=== PATIENT | female | born 1955 | race Caucasian/White ===

== ENCOUNTER 2016-05-11 20:55 | Emergency (ER) | payer OTHER ==
[~2016-05-11] VITALS: Ht 157.5 cm; Wt 40.0 kg
[~2016-05-11 20:55] MED LIST: BISACODYL SUPP10 MG PR; CALCIUM 600 +1 EAC1 GT; COLACE10 MG/ML PO; COLACE50 MG GT; CORTIZONE-10 PL57 GM TP; Caltrate 600/200 G; Colace G; DAILY VITAMIN1 EAC8 PO; DILANTIN GT; DILANTIN100 MG/4 M PO; DITROPAN5 MG PO; DOC-Q-LACE50 MG/5 ML GT; Ditropan PO; DuoNeb IH; FOLIC ACID1 MG GT; FOLIC ACID1 MG PO; FORTICAL3.7 ML ALT NARES; FOSAMAX70 MG GT; Folvite G; Fortical, Miacalcin ALT NARES; HYDROCORTISON28.4 G1 TP; Heparin Sodium SC; JEVITY 1.2 CAL237 ML G; JEVITY 1.2 CAL237 ML GT; KEPPRA G; KEPPRA1000 MG PO; Keppra PO; LAMICTAL200 MG PO; LAMICTAL25 MG PO; LAMOTRIGINE200 MG GT; LEVETIRACE100 MG/1 M GT; LEVOFLOXACIN750 MG GT; LEVOTHROID100 MCG PO; LEVOTHYROXINE100 MCG GT; LaMICtal G; LaMICtal PO; Levothroid,Synthroid GT; Lopressor G; Lopressor GT; METOPROLOL SUCC25 MG PO; METOPROLOL TART25 MG GT; MILK OF MAGNESI10 ML GT; MIRALAX17 GM PO; MIRALAX255 GM PO; MONTELUKAST SOD10 MG GT; Mysoline G; Mysoline PO; OXYBUTININ G; OXYBUTYNIN5 MG/5 ML GT; OYSTER SHELL C1 EAC7 PO; Ocean Nasal 0.65% BOTH NARES; Oscal 500 w/Vitamin PO; PHENYTOIN G; PHENYTOIN125 MG/5 M GT; POTASSIUM PO; PRIMIDONE50 MG GT; PRIMIDONE50 MG PO; PROMETRIUM200 M1 PO; PROVENTIL2.5 MG/3 M IH; Potassium Chloride 1 GT; SINGULAIR10 MG PO; Santyl TP; Singulair G; Singulair PO; THEO-24200 MG PO; THEOCHRON100 MG PO; THERAGRAN5 ML G; Theo-Dur,Theocron PO; Tirosint G; Tylenol PR; VITA50 ML GT; ZYVOX600 MG PO; ZYVOX600 MG/300 GT; Zofran PO
[2016-05-11 21:46] LABS: EOSINOPHIL (%) 7.2 % (0-5); EOSINOPHIL COUNT 0.6 K/uL (0-0.3); HEMATOCRIT 40.6 % (36.0-46.0); IMMATURE GRANULOCYTE (%) 0.1 % (0.0-0.7); IMMATURE GRANULOCYTE COUNT 0.1 K/uL; LYMPHOCYTE COUNT 2.5 K/uL (1.0-2.8); MCH 31.8 PG (29.0-34.0); MCHC 33.3 G/DL (30.0-36.0); MCV 95.8 FL (83-99); MEAN PLAT.VOLUME 9.9 uM^3 (9.5-12.4); MONOCYTE (%) 10.1 % (3-12); MONOCYTE COUNT 0.9 K/uL (0-0.8); NEUTROPHIL (%) 52.2 % (45-76); NEUTROPHIL COUNT 4.4 K/uL (1.8-6.4); PLATELET COUNT 271 K/uL (156-360); RBC DIS.WIDTH-CV 12.8 % (11.8-14.6); RBC DIS.WIDTH-SD 43.4 % (39-53); RED BLOOD COUNT 4.24 M/uL (3.80-5.20); WHITE BLOOD COUNT 8.4 K/uL (4.1-10.2)
[2016-05-11 21:56] LABS: CHLORIDE 101 mEq/L (99-109); POTASSIUM 4.3 mEq/L (3.7-5.4)
[2016-05-11 21:57] LABS: SODIUM 139 mEq/L (136-147)
[2016-05-11 21:59] LABS: GLUCOSE 86 mg/dL (70-99)
[2016-05-11 22:00] LABS: ANION GAP 10 MEQ/L (2-14)
[2016-05-11 22:01] LABS: TOTAL BILIRUBIN 0.3 mg/dL (0.0-1.0)
[2016-05-11 22:02] LABS: ALKALINE PHOSPHATASE 123 IU/L (3-129); GFR ESTIMATE (CALCULATED) > 59 mL/min/
[2016-05-11 22:04] LABS: UREA NITROGEN (BUN) 13 mg/dL (9-23)
[2016-05-11 22:06] LABS: TROP-I INTERPRETATION NEGATIVE; TROPONIN-I < 0.01 ng/mL (0.0-0.30)
[2016-05-11 23:46] LABS: ADD MIUA? YES
[2016-05-12 00:05] LABS: COLOR YELLOW ((YELLOW))
[2016-05-12 00:06] LABS: BILIRUBIN NEGATIVE; BLOOD SMALL; GLUCOSE (STRIP) NEGATIVE; KETONES NEGATIVE; LEUKOCYTES MODERATE; NITRITE NEGATIVE; PH, URINE 8.5 (5-8); PROTEIN (STRIP) TRACE; UROBILINOGEN 0.2 MG/DL (0.2-1.0)
[2016-05-12 00:07] LABS: AMORPHOUS PHOSPHATE CRYSTALS 1+; BACTERIA 2+; CASTS NONE SEEN /LPF; CRYSTALS PRESENT; EPITHELIAL CELLS RARE; MUCUS NONE SEEN; RED BLOOD CELLS 0-5 /HPF (0-5); UCUL ADDED? YES; WHITE BLOOD CELLS TNTC /HPF (0-5)
[2016-05-12] MEDS ORDERED: MIRALAX255 GM PO (00:29)
[2016-05-12] MEDS ORDERED: CIPRO500 MG PO (00:50)
[2016-05-12 02:12] VITALS: BP 118/74
== END 2016-05-12 02:45 | disposition home or self-care (01) ==
LOC: EME → EDBD 20:55 → EME 05-12 02:45
PROVIDERS: Emergency Medicine
DX: R56.9 Unspecified convulsions (principal); N30.00 Acute cystitis without hematuria; J45.909 Unspecified asthma, uncomplicated; E03.9 Hypothyroidism, unspecified; F79 Unspecified intellectual disabilities; G47.30 Sleep apnea, unspecified; G82.50 Quadriplegia, unspecified
CPT/HCPCS: 71010; 74177; 80053; 81003; 84484; 85025; 87077; 87086; 87186; 93005; 99281; 99285; J0744; J1953; J2060; J7030; J7050

== ENCOUNTER 2016-06-11 21:39 | Inpatient (IN) | payer OTHER ==
[~2016-06-11] VITALS: Ht 121.9 cm; Wt 37.9 kg
[~2016-06-11 21:39] MED LIST changes: +CIPRO500 MG PO; +MIRALAX255 GM GT
[2016-06-11 22:49] LABS: BASOPHIL COUNT 0.1 K/uL (0-0.1); EOSINOPHIL (%) 6.2 % (0-5); EOSINOPHIL COUNT 0.5 K/uL (0-0.3); HEMATOCRIT 41.6 % (36.0-46.0); IMMATURE GRANULOCYTE (%) 0.2 % (0.0-0.7); IMMATURE GRANULOCYTE COUNT 0.2 K/uL; LYMPHOCYTE COUNT 2.2 K/uL (1.0-2.8); MCH 31.6 PG (29.0-34.0); MCHC 32.9 G/DL (30.0-36.0); MCV 96.1 FL (83-99); MEAN PLAT.VOLUME 9.8 uM^3 (9.5-12.4); MONOCYTE (%) 7.4 % (3-12); MONOCYTE COUNT 0.6 K/uL (0-0.8); NEUTROPHIL (%) 59.8 % (45-76); NEUTROPHIL COUNT 5.2 K/uL (1.8-6.4); PLATELET COUNT 273 K/uL (156-360); RBC DIS.WIDTH-CV 12.9 % (11.8-14.6); RBC DIS.WIDTH-SD 43.4 % (39-53); RED BLOOD COUNT 4.33 M/uL (3.80-5.20); WHITE BLOOD COUNT 8.7 K/uL (4.1-10.2)
[2016-06-11 22:57] LABS: CHLORIDE 103 mEq/L (99-109); POTASSIUM 4.2 mEq/L (3.7-5.4); SODIUM 140 mEq/L (136-147)
[2016-06-11 22:59] LABS: GLUCOSE 90 mg/dL (70-99)
[2016-06-11 23:01] LABS: ANION GAP 8 MEQ/L (2-14); TOTAL BILIRUBIN 0.1 mg/dL (0.0-1.0)
[2016-06-11 23:03] LABS: ALKALINE PHOSPHATASE 152 IU/L (3-129); GFR ESTIMATE (CALCULATED) > 59 mL/min/
[2016-06-11 23:04] LABS: UREA NITROGEN (BUN) 11 mg/dL (9-23)
[2016-06-12 01:43] LABS: BASE EXCESS 4.9 mEq/L (-3 to +3); BICARBONATE 31.4 mEq/L (22-26); CARBOXY HGB 2.3 % (0-5); METHEMOGLOBIN 1.4 % (0-1.5); PCO2 53 mm Hg (35-45); PO2 71 mm Hg (80-100); pH 7.38 (7.35-7.45)
[2016-06-12 01:44] LABS: FI02 21 %; SITE RR
[2016-06-12] MEDS ORDERED: KEPPRA100 MG/1 M GT ×2 (03:22→12:13)
[2016-06-12 06:07] VITALS: BP 115/61
[2016-06-12 06:19] VITALS: BP 115/61
[2016-06-12 08:28] VITALS: BP 126/79
[2016-06-12 09:03] LABS: HEMATOCRIT 41.7 % (36.0-46.0); MCH 32.2 PG (29.0-34.0); MCHC 33.1 G/DL (30.0-36.0); MCV 97.2 FL (83-99); MEAN PLAT.VOLUME 10.4 uM^3 (9.5-12.4); PLATELET COUNT 251 K/uL (156-360); RBC DIS.WIDTH-CV 13.3 % (11.8-14.6); RBC DIS.WIDTH-SD 46.6 % (39-53); RED BLOOD COUNT 4.29 M/uL (3.80-5.20); WHITE BLOOD COUNT 8.1 K/uL (4.1-10.2)
[2016-06-12 09:38] LABS: ALKALINE PHOSPHATASE 139 IU/L (3-129); ANION GAP 6 MEQ/L (2-14); CHLORIDE 104 MEQ/L (99-109); GFR ESTIMATE (CALCULATED) > 59 mL/min/; GLUCOSE 77 mg/dL (70-99); POTASSIUM 4.7 MEQ/L (3.7-5.4); SAMPLE HEMOLYSIS CHECK 0; SAMPLE ICTERIC CHECK 0; SAMPLE LIPEMIA CHECK 0; SODIUM 140 MEQ/L (136-147); TOTAL BILIRUBIN 0.3 MG/DL (0.0-1.0); UREA NITROGEN (BUN) 8 mg/dL (9-23)
[2016-06-12] MEDS ORDERED: CALCIUM 600 +1 EAC1 GT (11:05)
[2016-06-12] MEDS ORDERED: MIACALCIN4 ML NS ×2 (11:09→11:13)
[2016-06-12] MEDS ORDERED: JEVITY 1.2 CAL237 ML GT (11:16)
[2016-06-12] MEDS ORDERED: MY FAVORITE MU237 ML GT (11:27)
[2016-06-12 11:58] VITALS: BP 109/60
[2016-06-12] MEDS ORDERED: DILANTIN-1125 MG/5 M GT (12:11)
[2016-06-12 23:54] VITALS: BP 84/47; BP 89/51
[2016-06-13 04:32] VITALS: BP 100/55
[2016-06-13 08:09] VITALS: BP 98/54
[2016-06-13 11:50] VITALS: BP 102/56
[2016-06-13 16:26] VITALS: BP 124/65
[2016-06-13 20:35] VITALS: BP 113/59
[2016-06-14 00:03] VITALS: BP 88/50
[2016-06-14 06:19] VITALS: BP 158/90
[2016-06-14 08:02] VITALS: BP 96/51
[2016-06-14] MEDS ORDERED: MILK OF MAGNESI10 ML GT (14:15)
[2016-06-14] MEDS ORDERED: Dilantin GT (14:15)
[2016-06-14] MEDS ORDERED: FAMOTIDINE20 MG GT (14:15)
[2016-06-14] MEDS ORDERED: BISAC-EVAC10 MG PR (14:15)
[2016-06-14 15:50] VITALS: BP 96/55
[2016-06-14 20:00] VITALS: BP 100/59
[2016-06-15 00:11] VITALS: BP 112/60
[2016-06-15 04:01] VITALS: BP 108/58
[2016-06-15 08:24] VITALS: BP 102/54
[2016-06-15 11:23] VITALS: BP 118/67
== END 2016-06-15 12:35 | disposition home or self-care (01) | DRG 100 ==
LOC: EME → EDBD 21:39 → EDOF 06-12 04:17 → 3EAST 06-12 04:17
PROVIDERS: Emergency Medicine; Internal Medicine
DX: G40.909 Epilepsy, unspecified, not intractable, without status epilepticus (principal); L89.214 Pressure ulcer of right hip, stage 4; E46 Unspecified protein-calorie malnutrition; G80.0 Spastic quadriplegic cerebral palsy; E87.1 Hypo-osmolality and hyponatremia; N39.0 Urinary tract infection, site not specified; Z93.1 Gastrostomy status; G47.30 Sleep apnea, unspecified; E03.9 Hypothyroidism, unspecified; F79 Unspecified intellectual disabilities; J45.909 Unspecified asthma, uncomplicated; Z68.25 Body mass index [BMI] 25.0-25.9, adult
CPT/HCPCS: 36600; 71010; 80053; 80164; 80185; 82803; 85025; 85027; 94799; 99281; 99285; J1644; J1953; J2060; J7030; J7050

== ENCOUNTER 2016-06-25 21:18 | Inpatient (IN) | payer OTHER ==
[~2016-06-25] VITALS: Ht 142.2 cm; Wt 40.4 kg
[~2016-06-25 21:18] MED LIST changes: +BISAC-EVAC10 MG PR; +DILANTIN-1125 MG/5 M GT; +Dilantin GT; +FAMOTIDINE20 MG GT; +KEPPRA100 MG/1 M GT; +MIACALCIN4 ML NS; +MY FAVORITE MU237 ML GT
[2016-06-25 21:24] VITALS: BP 105/68
[2016-06-25 22:00] VITALS: BP 104/59
[2016-06-25 22:32] LABS: BASOPHIL COUNT 0.1 K/uL (0-0.1); EOSINOPHIL (%) 6.4 % (0-5); EOSINOPHIL COUNT 0.7 K/uL (0-0.3); HEMATOCRIT 41.9 % (36.0-46.0); IMMATURE GRANULOCYTE (%) 0.4 % (0.0-0.7); IMMATURE GRANULOCYTE COUNT 0.1 K/uL; INSTRUMENT ABS NEUTROPHIL CT 7.2 K/uL; LYMPHOCYTE COUNT 2.5 K/uL (1.0-2.8); MCH 31.6 PG (29.0-34.0); MCHC 32.7 G/DL (30.0-36.0); MCV 96.5 FL (83-99); MEAN PLAT.VOLUME 9.8 uM^3 (9.5-12.4); MONOCYTE (%) 7.4 % (3-12); MONOCYTE COUNT 0.9 K/uL (0-0.8); NEUTROPHIL (%) 63.1 % (45-76); NEUTROPHIL COUNT 7.2 K/uL (1.8-6.4); RBC DIS.WIDTH-CV 12.7 % (11.8-14.6); RBC DIS.WIDTH-SD 45.1 % (39-53); RED BLOOD COUNT 4.34 M/uL (3.80-5.20)
[2016-06-25 22:47] LABS: CHLORIDE 100 mEq/L (99-109); SODIUM 136 mEq/L (136-147)
[2016-06-25 22:48] LABS: PLATELET COUNT 339 K/uL (156-360); WHITE BLOOD COUNT 11.5 K/uL (4.1-10.2)
[2016-06-25 22:50] LABS: GLUCOSE 87 mg/dL (70-99)
[2016-06-25 22:51] LABS: ANION GAP 8 MEQ/L (2-14); TOTAL BILIRUBIN 0.2 mg/dL (0.0-1.0)
[2016-06-25 22:53] LABS: ALKALINE PHOSPHATASE 142 IU/L (3-129); GFR ESTIMATE (CALCULATED) > 59 mL/min/
[2016-06-25 22:54] LABS: UREA NITROGEN (BUN) 11 mg/dL (9-23)
[2016-06-25 23:00] VITALS: BP 102/63
[2016-06-25 23:10] LABS: ADD MIUA? YES; BILIRUBIN NEGATIVE; BLOOD NEGATIVE; COLOR YELLOW ((YELLOW)); GLUCOSE (STRIP) NEGATIVE; KETONES NEGATIVE; LEUKOCYTES LARGE; NITRITE NEGATIVE; PROTEIN (STRIP) NEGATIVE; SPECIFIC GRAVITY 1.009 (1.000-1.030); UROBILINOGEN 0.2 MG/DL (0.2-1.0)
[2016-06-25 23:26] LABS: BACTERIA 2+ /HPF; EPITHELIAL CELLS NONE SEEN /HPF; HYALINE CASTS 0-5 /LPF; MUCUS TRACE /LPF; RED BLOOD CELLS 0-5 /HPF (0-5); UCUL ADDED? YES
[2016-06-26] VITALS (9 sets, daily range): BP systolic 88–131; BP diastolic 51–75
[2016-06-26] MEDS ORDERED: DULCOLAX10 MG PR (00:29)
[2016-06-26] MEDS ORDERED: MIACALCIN4 ML NS (00:30)
[2016-06-26] MEDS ORDERED: DILANTIN-1125 MG/5 M GT ×2 (00:32→00:46)
[2016-06-26] MEDS ORDERED: PHILLIPS'400 MG/5 M GT (00:35)
[2016-06-26] MEDS ORDERED: CALMOSEPTINE O120 GM TP (00:37)
[2016-06-26] MEDS ORDERED: FLEET ENEMA-AD118 ML PR (00:37)
[2016-06-26] MEDS ORDERED: DIASTAT ACUDIAL10 MG PR (00:38)
[2016-06-26] MEDS ORDERED: CHILDREN'S160 MG/22 GT (00:38)
[2016-06-26] MEDS ORDERED: PROVENTIL,2.5 MG/3 M IH (00:38)
[2016-06-26] MEDS ORDERED: FAMOTIDINE40 MG/5 ML GT (00:47)
[2016-06-26] MEDS ORDERED: ZONISAMIDE100 MG GT (00:47)
[2016-06-26 09:07] LABS: INTERNAL CONTROL VALID? YES
[2016-06-26 10:56] LABS: HEMATOCRIT 45.4 % (36.0-46.0); MCH 31.4 PG (29.0-34.0); MCHC 31.5 G/DL (30.0-36.0); MCV 99.6 FL (83-99); MEAN PLAT.VOLUME 9.9 uM^3 (9.5-12.4); PLATELET COUNT 303 K/uL (156-360); RBC DIS.WIDTH-SD 47.8 % (39-53); RED BLOOD COUNT 4.56 M/uL (3.80-5.20)
[2016-06-26 10:58] LABS: WHITE BLOOD COUNT 7.4 K/uL (4.1-10.2)
[2016-06-26 11:16] LABS: ALKALINE PHOSPHATASE 149 IU/L (3-129); ANION GAP 7 MEQ/L (2-14); CHLORIDE 104 MEQ/L (99-109); GFR ESTIMATE (CALCULATED) > 59 mL/min/; GLUCOSE 81 mg/dL (70-99); POTASSIUM 4.7 MEQ/L (3.7-5.4); SAMPLE HEMOLYSIS CHECK 0; SAMPLE ICTERIC CHECK 0; SAMPLE LIPEMIA CHECK 0; SODIUM 140 MEQ/L (136-147); TOTAL BILIRUBIN 0.3 MG/DL (0.0-1.0); UREA NITROGEN (BUN) 7 mg/dL (9-23)
[2016-06-27 03:22] VITALS: BP 119/58
[2016-06-27 06:19] LABS: BASOPHIL COUNT 0.1 K/uL (0-0.1); EOSINOPHIL (%) 9.6 % (0-5); EOSINOPHIL COUNT 0.7 K/uL (0-0.3); HEMATOCRIT 43.6 % (36.0-46.0); IMMATURE GRANULOCYTE (%) 0.3 % (0.0-0.7); INSTRUMENT ABS NEUTROPHIL CT 3.2 K/uL; LYMPHOCYTE COUNT 2.7 K/uL (1.0-2.8); MCH 31.7 PG (29.0-34.0); MCHC 31.9 G/DL (30.0-36.0); MCV 99.3 FL (83-99); MEAN PLAT.VOLUME 9.8 uM^3 (9.5-12.4); MONOCYTE COUNT 0.6 K/uL (0-0.8); NEUTROPHIL (%) 43.5 % (45-76); NEUTROPHIL COUNT 3.2 K/uL (1.8-6.4); PLATELET COUNT 342 K/uL (156-360); RBC DIS.WIDTH-CV 12.9 % (11.8-14.6); RED BLOOD COUNT 4.39 M/uL (3.80-5.20); WHITE BLOOD COUNT 7.3 K/uL (4.1-10.2)
[2016-06-27 06:45] LABS: ANION GAP 7 MEQ/L (2-14); CHLORIDE 103 MEQ/L (99-109); GFR ESTIMATE (CALCULATED) > 59 mL/min/; GLUCOSE 81 mg/dL (70-99); POTASSIUM 4.8 MEQ/L (3.7-5.4); SAMPLE HEMOLYSIS CHECK 0; SAMPLE ICTERIC CHECK 0; SAMPLE LIPEMIA CHECK 0; SODIUM 140 MEQ/L (136-147); UREA NITROGEN (BUN) 12 mg/dL (9-23)
[2016-06-27 07:59] VITALS: BP 131/60
[2016-06-27 08:02] LABS: POINT-OF-CARE METER ID UU13113702
[2016-06-27 17:32] VITALS: BP 134/60
[2016-06-27 19:15] VITALS: BP 128/64
[2016-06-27 23:18] VITALS: BP 112/62
[2016-06-28 03:42] VITALS: BP 125/62
[2016-06-28 07:15] VITALS: BP 119/61
[2016-06-28 07:23] LABS: HEMATOCRIT 42.3 % (36.0-46.0); MCH 31.2 PG (29.0-34.0); MCHC 31.9 G/DL (30.0-36.0); MCV 97.7 FL (83-99); PLATELET COUNT 349 K/uL (156-360); RBC DIS.WIDTH-CV 12.9 % (11.8-14.6); RBC DIS.WIDTH-SD 46.4 % (39-53); RED BLOOD COUNT 4.33 M/uL (3.80-5.20); WHITE BLOOD COUNT 7.1 K/uL (4.1-10.2)
[2016-06-28 07:42] LABS: ANION GAP 9 MEQ/L (2-14); CHLORIDE 103 MEQ/L (99-109); GFR ESTIMATE (CALCULATED) > 59 mL/min/; GLUCOSE 121 mg/dL (70-99); SAMPLE HEMOLYSIS CHECK 0; SAMPLE ICTERIC CHECK 0; SAMPLE LIPEMIA CHECK 0; SODIUM 140 MEQ/L (136-147); UREA NITROGEN (BUN) 12 mg/dL (9-23)
[2016-06-28] MEDS ORDERED: AMOX TR-K400 MG/5 M GT (09:55)
[2016-06-28] MEDS ORDERED: DILANTIN-1125 MG/5 M GT (09:55)
[2016-06-28] MEDS ORDERED: ZITHROMAX200 MG/5 M GT (09:55)
== END 2016-06-28 14:48 | disposition home or self-care (01) | DRG 100 ==
LOC: EME → EDBD 21:18 → EDOF 06-26 00:46 → 5EAST 06-26 00:46
PROVIDERS: Emergency Medicine; Family Medicine; Hospitalist; Pediatrics
DX: G40.909 Epilepsy, unspecified, not intractable, without status epilepticus (principal); J18.9 Pneumonia, unspecified organism; N39.0 Urinary tract infection, site not specified; L89.214 Pressure ulcer of right hip, stage 4; G80.0 Spastic quadriplegic cerebral palsy; F72 Severe intellectual disabilities; T42.0X1A Poisoning by hydantoin derivatives, accidental (unintentional), initial encounter; E03.9 Hypothyroidism, unspecified; G47.33 Obstructive sleep apnea (adult) (pediatric); Z66 Do not resuscitate; Z51.5 Encounter for palliative care; Z86.14 Personal history of Methicillin resistant Staphylococcus aureus infection; Z93.1 Gastrostomy status; Z88.2 Allergy status to sulfonamides
CPT/HCPCS: 71010; 80048; 80053; 80164; 80185; 81003; 82948; 85025; 85027; 87040; 87077; 87086 GA; 87186; 87449; 93005; 94799; 99202; 99281; 99285; J0456; J0696; J1644; J2060; J7030; J7050

== ENCOUNTER 2016-12-07 19:00 | Inpatient (IN) | payer OTHER ==
[~2016-12-07] VITALS: Ht 137.2 cm; Wt 48.6 kg
[~2016-12-07 19:00] MED LIST changes: +AMOX TR-K400 MG/5 M GT; +CALMOSEPTINE O120 GM TP; +CHILDREN'S160 MG/22 GT; +DIASTAT ACUDIAL10 MG PR; +DULCOLAX10 MG PR; +FAMOTIDINE40 MG/5 ML GT; +FLEET ENEMA-AD118 ML PR; +PHILLIPS'400 MG/5 M GT; +PROVENTIL,2.5 MG/3 M IH; +ZITHROMAX200 MG/5 M GT; +ZONISAMIDE100 MG GT
[2016-12-07 19:47] LABS: EOSINOPHIL (%) 1.2 % (0-5); EOSINOPHIL COUNT 0.2 K/uL (0-0.3); HEMATOCRIT 45.2 % (36.0-46.0); IMMATURE GRANULOCYTE (%) 0.4 % (0.0-0.7); IMMATURE GRANULOCYTE COUNT 0.1 K/uL; INSTRUMENT ABS NEUTROPHIL CT 10.6 K/uL; LYMPHOCYTE COUNT 1.5 K/uL (1.0-2.8); MCH 31.6 PG (29.0-34.0); MCHC 32.7 G/DL (30.0-36.0); MCV 96.6 FL (83-99); MEAN PLAT.VOLUME 9.9 uM^3 (9.5-12.4); MONOCYTE (%) 5.6 % (3-12); MONOCYTE COUNT 0.7 K/uL (0-0.8); NEUTROPHIL (%) 81.2 % (45-76); NEUTROPHIL COUNT 10.6 K/uL (1.8-6.4); PLATELET COUNT 236 K/uL (156-360); RBC DIS.WIDTH-CV 12.5 % (11.8-14.6); RBC DIS.WIDTH-SD 44.7 % (39-53); RED BLOOD COUNT 4.68 M/uL (3.80-5.20); WHITE BLOOD COUNT 13.1 K/uL (4.1-10.2)
[2016-12-07 19:57] LABS: CHLORIDE 101 mEq/L (99-109); POTASSIUM 3.9 mEq/L (3.7-5.4); SODIUM 137 mEq/L (136-147)
[2016-12-07 19:58] LABS: GLUCOSE 162 mg/dL (70-99)
[2016-12-07 20:00] LABS: ANION GAP 10 MEQ/L (2-14)
[2016-12-07 20:02] LABS: GFR ESTIMATE (CALCULATED) > 59 mL/min/
[2016-12-07 20:03] LABS: UREA NITROGEN (BUN) 14 mg/dL (9-23)
[2016-12-07 20:27] LABS: TOTAL BILIRUBIN 0.3 mg/dL (0.0-1.0)
[2016-12-07 20:28] LABS: ALKALINE PHOSPHATASE 180 IU/L (3-129)
[2016-12-07 20:30] LABS: DIRECT BILIRUBIN 0.1 mg/dL (0.0-0.3)
[2016-12-07 21:29] LABS: ADD MIUA? YES; BILIRUBIN NEGATIVE; BLOOD NEGATIVE; COLOR YELLOW ((YELLOW)); GLUCOSE (STRIP) NEGATIVE; KETONES NEGATIVE; LEUKOCYTES LARGE; NITRITE POSITIVE; PROTEIN (STRIP) NEGATIVE; SPECIFIC GRAVITY 1.013 (1.000-1.030); UROBILINOGEN 0.2 MG/DL (0.2-1.0)
[2016-12-07 21:51] LABS: BACTERIA 4+ /HPF; CASTS PRESENT /LPF; CRYSTALS PRESENT; EPITHELIAL CELLS NONE SEEN /HPF; MUCUS NONE SEEN /LPF; RED BLOOD CELLS 0-5 /HPF (0-5); UCUL ADDED? YES
[2016-12-07 21:53] LABS: AMORPHOUS PHOSPHATE CRYSTALS 1+; COARSE GRANULAR CASTS 0-5 /LPF
[2016-12-08 03:23] VITALS: BP 129/65
[2016-12-08] MEDS ORDERED: CALCIUM 600 +1 EAC1 GT (03:48)
[2016-12-08] MEDS ORDERED: PEPCID40 MG/5 ML GT (03:50)
[2016-12-08] MEDS ORDERED: FOLIC ACID1 MG GT (03:51)
[2016-12-08] MEDS ORDERED: CALCITONIN-SAL3.8 ML ALT NARES (03:53)
[2016-12-08] MEDS ORDERED: MIACALCIN200 UNIT/1 RIGHT NARE (03:54)
[2016-12-08] MEDS ORDERED: JEVITY 1.2 CAL237 ML PO (03:56)
[2016-12-08] MEDS ORDERED: LAMICTAL200 MG GT (03:57)
[2016-12-08] MEDS ORDERED: SYNTHROID100 MCG GT (03:58)
[2016-12-08] MEDS ORDERED: KEPPRA100 MG/1 M PO (03:58)
[2016-12-08] MEDS ORDERED: LOPRESSOR25 MG GT (04:02)
[2016-12-08] MEDS ORDERED: MIRALAX17 GM GT (04:04)
[2016-12-08] MEDS ORDERED: SINGULAIR10 MG GT (04:05)
[2016-12-08] MEDS ORDERED: MULTI VITAMIN1 EACH GT (04:06)
[2016-12-08] MEDS ORDERED: DITROPAN5 MG GT (04:07)
[2016-12-08] MEDS ORDERED: PHENYTOIN125 MG/5 M GT (04:08)
[2016-12-08] MEDS ORDERED: MYSOLINE50 MG GT (04:09)
[2016-12-08] MEDS ORDERED: ZONEGRAN100 MG GT (04:10)
[2016-12-08] MEDS ORDERED: ZONEGRAN100 MG PO (04:10)
[2016-12-08 04:54] LABS: METH RESISTANT S AUREUS PCR POSITIVE (NEGATIVE)
[2016-12-08 04:59] LABS: PROBE CHECK PASS
[2016-12-08] MEDS ORDERED: KEPPRA100 MG/1 M GT (05:31)
[2016-12-08 07:44] VITALS: BP 91/51
[2016-12-08 11:34] VITALS: BP 104/62
[2016-12-08 15:31] VITALS: BP 116/62
[2016-12-08 23:38] VITALS: BP 104/53
[2016-12-09 04:17] VITALS: BP 171/84
[2016-12-09 07:17] LABS: HEMATOCRIT 39.9 % (36.0-46.0); MCH 31.3 PG (29.0-34.0); MCHC 31.6 G/DL (30.0-36.0); MCV 99.3 FL (83-99); MEAN PLAT.VOLUME 10.5 uM^3 (9.5-12.4); PLATELET COUNT 211 K/uL (156-360); RBC DIS.WIDTH-CV 12.5 % (11.8-14.6); RBC DIS.WIDTH-SD 45.5 % (39-53); RED BLOOD COUNT 4.02 M/uL (3.80-5.20); WHITE BLOOD COUNT 12.8 K/uL (4.1-10.2)
[2016-12-09 07:29] LABS: ANION GAP 9 MEQ/L (2-14); CHLORIDE 101 MEQ/L (99-109); GFR ESTIMATE (CALCULATED) > 59 mL/min/; POTASSIUM 4.2 MEQ/L (3.7-5.4); SAMPLE HEMOLYSIS CHECK 0; SAMPLE ICTERIC CHECK 0; SAMPLE LIPEMIA CHECK 0; SODIUM 135 MEQ/L (136-147); UREA NITROGEN (BUN) 7 mg/dL (9-23)
[2016-12-09 07:30] LABS: GLUCOSE 103 mg/dL (70-99)
[2016-12-09 08:09] VITALS: BP 110/63
[2016-12-09 16:33] VITALS: BP 118/62
[2016-12-09 23:11] VITALS: BP 113/66
[2016-12-10 07:19] LABS: BASOPHIL COUNT 0.1 K/uL (0-0.1); EOSINOPHIL (%) 2.1 % (0-5); EOSINOPHIL COUNT 0.3 K/uL (0-0.3); HEMATOCRIT 39.2 % (36.0-46.0); IMMATURE GRANULOCYTE (%) 0.5 % (0.0-0.7); IMMATURE GRANULOCYTE COUNT 0.1 K/uL; INSTRUMENT ABS NEUTROPHIL CT 10.9 K/uL; LYMPHOCYTE COUNT 1.7 K/uL (1.0-2.8); MCH 32.3 PG (29.0-34.0); MCHC 32.9 G/DL (30.0-36.0); MCV 98.2 FL (83-99); MONOCYTE (%) 9.3 % (3-12); MONOCYTE COUNT 1.3 K/uL (0-0.8); NEUTROPHIL (%) 76.2 % (45-76); NEUTROPHIL COUNT 10.9 K/uL (1.8-6.4); RBC DIS.WIDTH-CV 12.5 % (11.8-14.6); RBC DIS.WIDTH-SD 45.6 % (39-53); RED BLOOD COUNT 3.99 M/uL (3.80-5.20); WHITE BLOOD COUNT 14.3 K/uL (4.1-10.2)
[2016-12-10 07:45] LABS: MEAN PLAT.VOLUME 11.2 uM^3 (9.5-12.4); PLAT.SUFFICIENCY ADEQUATE; PLATELET COUNT 199 K/uL (156-360)
[2016-12-10 07:53] LABS: ANION GAP 10 MEQ/L (2-14); CHLORIDE 103 MEQ/L (99-109); GFR ESTIMATE (CALCULATED) > 59 mL/min/; GLUCOSE 98 mg/dL (70-99); POTASSIUM 4.2 MEQ/L (3.7-5.4); SAMPLE HEMOLYSIS CHECK 0; SAMPLE ICTERIC CHECK 0; SAMPLE LIPEMIA CHECK 0; SODIUM 139 MEQ/L (136-147); UREA NITROGEN (BUN) 8 mg/dL (9-23)
[2016-12-10 08:05] VITALS: BP 132/76
[2016-12-10 15:31] VITALS: BP 107/58
[2016-12-11 00:06] VITALS: BP 112/55
[2016-12-11 06:48] LABS: BASOPHIL COUNT 0.1 K/uL (0-0.1); EOSINOPHIL (%) 2.1 % (0-5); EOSINOPHIL COUNT 0.2 K/uL (0-0.3); HEMATOCRIT 38.3 % (36.0-46.0); IMMATURE GRANULOCYTE (%) 0.5 % (0.0-0.7); IMMATURE GRANULOCYTE COUNT 0.1 K/uL; INSTRUMENT ABS NEUTROPHIL CT 7.6 K/uL; MCH 31.5 PG (29.0-34.0); MCHC 32.6 G/DL (30.0-36.0); MCV 96.5 FL (83-99); MEAN PLAT.VOLUME 10.5 uM^3 (9.5-12.4); MONOCYTE (%) 10.9 % (3-12); MONOCYTE COUNT 1.2 K/uL (0-0.8); NEUTROPHIL (%) 68.2 % (45-76); NEUTROPHIL COUNT 7.6 K/uL (1.8-6.4); PLATELET COUNT 208 K/uL (156-360); RBC DIS.WIDTH-CV 12.2 % (11.8-14.6); RBC DIS.WIDTH-SD 43.6 % (39-53); RED BLOOD COUNT 3.97 M/uL (3.80-5.20); WHITE BLOOD COUNT 11.1 K/uL (4.1-10.2)
[2016-12-11 07:16] LABS: ANION GAP 10 MEQ/L (2-14); CHLORIDE 104 MEQ/L (99-109); GFR ESTIMATE (CALCULATED) > 59 mL/min/; GLUCOSE 104 mg/dL (70-99); POTASSIUM 4.2 MEQ/L (3.7-5.4); SAMPLE HEMOLYSIS CHECK 0; SAMPLE ICTERIC CHECK 0; SAMPLE LIPEMIA CHECK 0; SODIUM 137 MEQ/L (136-147); UREA NITROGEN (BUN) 6 mg/dL (9-23)
[2016-12-11 08:29] VITALS: BP 115/58
[2016-12-11 11:47] VITALS: BP 114/61
[2016-12-11 17:06] VITALS: BP 123/68
[2016-12-12 00:04] VITALS: BP 136/81
[2016-12-12 07:14] VITALS: BP 123/58
[2016-12-12] MEDS ORDERED: PRIMIDONE50 MG GT (07:24)
[2016-12-12] MEDS ORDERED: FURADANTIN25 MG/5 ML PO (07:24)
[2016-12-12 15:27] VITALS: BP 126/58
[2016-12-13 00:12] VITALS: BP 122/58
[2016-12-13 07:21] VITALS: BP 117/63
[2016-12-13 15:56] VITALS: BP 134/82
[2016-12-14 00:11] VITALS: BP 121/76
[2016-12-14 07:01] LABS: BASOPHIL COUNT 0.1 K/uL (0-0.1); EOSINOPHIL (%) 7.6 % (0-5); EOSINOPHIL COUNT 0.8 K/uL (0-0.3); IMMATURE GRANULOCYTE (%) 0.4 % (0.0-0.7); INSTRUMENT ABS NEUTROPHIL CT 6.6 K/uL; LYMPHOCYTE COUNT 1.9 K/uL (1.0-2.8); MCH 31.5 PG (29.0-34.0); MCHC 32.1 G/DL (30.0-36.0); MCV 98.2 FL (83-99); MEAN PLAT.VOLUME 10.1 uM^3 (9.5-12.4); MONOCYTE (%) 8.8 % (3-12); MONOCYTE COUNT 0.9 K/uL (0-0.8); NEUTROPHIL (%) 64.1 % (45-76); NEUTROPHIL COUNT 6.6 K/uL (1.8-6.4); RBC DIS.WIDTH-CV 12.3 % (11.8-14.6); RBC DIS.WIDTH-SD 44.3 % (39-53); RED BLOOD COUNT 3.87 M/uL (3.80-5.20); WHITE BLOOD COUNT 10.3 K/uL (4.1-10.2)
[2016-12-14 07:02] LABS: PLATELET COUNT 334 K/uL (156-360)
[2016-12-14 07:20] LABS: ALKALINE PHOSPHATASE 117 IU/L (3-129); ANION GAP 8 MEQ/L (2-14); CHLORIDE 99 MEQ/L (99-109); GFR ESTIMATE (CALCULATED) > 59 mL/min/; GLUCOSE 126 mg/dL (70-99); POTASSIUM 4.1 MEQ/L (3.7-5.4); SAMPLE HEMOLYSIS CHECK 0; SAMPLE ICTERIC CHECK 0; SAMPLE LIPEMIA CHECK 0; SODIUM 136 MEQ/L (136-147); TOTAL BILIRUBIN 0.3 MG/DL (0.0-1.0); UREA NITROGEN (BUN) 9 mg/dL (9-23)
[2016-12-14 07:28] VITALS: BP 110/75
[2016-12-14 15:49] VITALS: BP 106/62
[2016-12-14 23:12] VITALS: BP 111/56
[2016-12-15 06:47] LABS: BASOPHIL COUNT 0.1 K/uL (0-0.1); EOSINOPHIL (%) 9.6 % (0-5); EOSINOPHIL COUNT 0.9 K/uL (0-0.3); HEMATOCRIT 39.3 % (36.0-46.0); IMMATURE GRANULOCYTE (%) 0.3 % (0.0-0.7); INSTRUMENT ABS NEUTROPHIL CT 5.2 K/uL; LYMPHOCYTE COUNT 2.1 K/uL (1.0-2.8); MCH 31.1 PG (29.0-34.0); MCHC 31.3 G/DL (30.0-36.0); MCV 99.5 FL (83-99); MEAN PLAT.VOLUME 9.9 uM^3 (9.5-12.4); MONOCYTE (%) 8.8 % (3-12); MONOCYTE COUNT 0.8 K/uL (0-0.8); NEUTROPHIL (%) 57.2 % (45-76); NEUTROPHIL COUNT 5.2 K/uL (1.8-6.4); PLATELET COUNT 386 K/uL (156-360); RBC DIS.WIDTH-CV 12.5 % (11.8-14.6); RBC DIS.WIDTH-SD 44.9 % (39-53); RED BLOOD COUNT 3.95 M/uL (3.80-5.20); WHITE BLOOD COUNT 9.2 K/uL (4.1-10.2)
[2016-12-15 07:04] VITALS: BP 130/72
[2016-12-15 15:04] VITALS: BP 118/74
[2016-12-15 23:39] VITALS: BP 123/60
[2016-12-16 07:12] VITALS: BP 131/76
[2016-12-16] MEDS ORDERED: CEFTIN125 MG/5 M GT (07:37)
[2016-12-16] MEDS ORDERED: OXYGEN MC (07:38)
[2016-12-16] MEDS ORDERED: NYAMYC60 GM TP (07:50)
[2016-12-16 15:02] VITALS: BP 118/74
[2016-12-16 23:36] VITALS: BP 118/74
[2016-12-17 07:41] VITALS: BP 118/64
[2016-12-17 16:23] VITALS: BP 104/68
[2016-12-17 23:20] VITALS: BP 141/81
[2016-12-18 07:18] VITALS: BP 110/64
[2016-12-18] MEDS ORDERED: FURADANTIN25 MG/5 ML PO (07:29)
[2016-12-18 15:58] VITALS: BP 130/68
== END 2016-12-18 16:32 | disposition home or self-care (01) | DRG 871 ==
LOC: EME 19:00 → CANRESERV 12-08 00:44 → ENRESERV 12-08 00:44 → 3EAST 12-08 00:44 → EDOF 12-08 00:44 → CANRESERV 12-08 01:29 → ENRESERV 12-08 01:29 → 3EAST 12-08 03:01
PROVIDERS: Hospitalist; Nurse Practitioner Adult Health; Physician Assistant; Physician Assistant Medical
DX: A41.9 Sepsis, unspecified organism (principal); J69.0 Pneumonitis due to inhalation of food and vomit; M41.9 Scoliosis, unspecified; N39.0 Urinary tract infection, site not specified; R65.20 Severe sepsis without septic shock; F72 Severe intellectual disabilities; R00.0 Tachycardia, unspecified; G80.9 Cerebral palsy, unspecified; E03.9 Hypothyroidism, unspecified; G82.50 Quadriplegia, unspecified; G40.909 Epilepsy, unspecified, not intractable, without status epilepticus; G47.33 Obstructive sleep apnea (adult) (pediatric); L89.94 Pressure ulcer of unspecified site, stage 4; R21 Rash and other nonspecific skin eruption; M95.4 Acquired deformity of chest and rib; J45.909 Unspecified asthma, uncomplicated; R09.02 Hypoxemia; Z79.899 Other long term (current) drug therapy; Z86.14 Personal history of Methicillin resistant Staphylococcus aureus infection; Z74.01 Bed confinement status; Z93.1 Gastrostomy status
CPT/HCPCS: 71010; 71020; 80048; 80053; 80069; 80076; 81003; 83605; 85025; 85027; 87040; 87070; 87075; 87076; 87077; 87086; 87185; 87186; 87205; 87641; 87801; 94799; 99202; 99281; 99285; J0696; J1644; J2543; J3370; J7030; J7050; S0028